=== PATIENT | male | born 1965 ===

== ENCOUNTER 2018-07-16 17:51 | Emergency (ER) | payer SELFPAY ==
--- NOTE | 2018-07-16 18:23 | EDM.PDOC ---
ED HPI GENERAL MEDICAL PROBLEM - General Chief Complaint: General Stated Complaint: NUMB ON LT SIDE Time Seen by Provider: 07/16/18 18:08 Source of Information: Reports: Patient History Limitations: Reports: No Limitations - History of Present Illness INITIAL COMMENTS - FREE TEXT/NARRATIVE: HISTORY AND PHYSICAL: History of present illness: Patient is a 52-year-old male presents to the ED today for concern of foot numbness/pain 3 weeks. Patient states he did not come in initially because he thought it would get better but it has not. Patient states the numbness is on the bottom of his toes and foot on the left. Patient states yesterday his whole foot has swelled up and he had noticed that this made his symptoms worse. Patient denies any injury to the foot. Patient states he does have diabetes and has not been getting this managed outpatient. Patient denies any other symptoms. Patient denies fever, chills, chest pain, shortness of breath, or cough. Denies headache, neck stiff ness, change in vision, syncope, or near syncope. Denies nausea, vomiting, abdominal pain, diarrhea, constipation, or dysuria. Has not noted any blood in urine or stool. Patient has been eating and drinking appropriately. Review of systems: As per history of present illness and below otherwise all systems reviewed and negative. Past medical history: As per history of present illness and as reviewed below otherwise noncontributory. Surgical history: As per history of present illness and as reviewed below otherwise noncontributory. Social history: See social history for further information Family history: As per history of present illness and as reviewed below otherwise noncontributory. Physical exam: General: Patient is alert, oriented, and in no acute distress. Patient sitting comfortably on exam table. HEENT: Atraumatic, normocephalic, pupils equal and reactive bilaterally, negative for conjunctival pallor or scleral icterus, mucous membranes moist, TMs normal bilaterally, throat clear, neck supple, nontender, trachea midline. No drooling or trismus noted. No meningeal signs. No hot potato voice noted. Lungs: Clear to auscultation, breath sounds equal bilaterally, chest nontender. Heart: S1S2, regular rate and rhythm without overt murmur Abdomen: Soft, nondistended, nontender. Negative for masses or hepatosplenomegaly. Negative for costovertebral tenderness. Pelvis: Stable nontender. Genitourinary: Deferred. Rectal: Deferred. Skin: Intact, warm, dry. No lesions or rashes noted. Extremities: Atraumatic, negative for cords or calf pain. Neurovascular unremarkable. Dorsalis pedis and posterior tibial pulses intact. Doppler. Patient has full range of motion of bilateral ankles and toes. Negative pain to palpation of the complete foot. No edema or erythema noted of the foot. Patient does express numbness with touch to the bottom toes and dorsum of the foot. Patient has full range of motion of knees and hip without difficulty. Capillary refill less than 2 seconds. Neuro: Awake, alert, oriented. Cranial nerves II through XII unremarkable. Cerebellum unremarkable. Motor and sensory unremarkable throughout. Exam nonfocal. Notes: Dr. Eastman verbally involved in patient care. On secondary review when discussing patient's glucose level, he states he does have metformin at home, just has not been taking it. I did discuss the option of admission for observation and management of his sugars, but patient declines stating "I have work to do" and declines admission. Discussed the risks of going home and patient is accepting of risk. Discussed the importance of follow-up with primary care provider. He is placed on the expedited appointment visit. Voices understanding and is agreeable to plan of care. Discussed taking his metformin he has at home. Denies any further questions or concerns at this time. Diagnostics: foot XR, doppler venous lower extremity, CBC, CMP, UA, bedside glucose Therapeutics: Insulin, saline Prescription: None Impression: Type 2 Diabetes, uncontrolled Foot paresthesia, left Plan: 1. You can alternate ibuprofen and Tylenol as directed for pain and discomfort. Take your Metformin as you have at home. 2. Follow-up with a primary care provider and get established for care of your diabetes as discussed. 3. Return to the ED as needed and as discussed. Definitive disposition and diagnosis as appropriate pending reevaluation and review of above. no pain Pain Score (Numeric/FACES): 0 - Related Data Allergies Allergy/AdvReac Type Severity Reaction Status Date / Time No Known Allergies Allergy Verified 07/16/18 18:04 Home Meds: Home Meds Lisinopril 0 mg PO DAILY 07/16/18 [History] metFORMIN [Glucophage] 100 mg PO BID 07/16/18 [History] Past Medical History HEENT History: Reports: None Cardiovascular History: Reports: Hypertension Respiratory History: Reports: None Gastrointestinal History: Reports: None Genitourinary History: Reports: None Neurological History: Reports: None Psychiatric History: Reports: None Endocrine/Metabolic History: Reports: Diabetes, Type II Hematologic History: Reports: None Dermatologic History: Reports: None - Infectious Disease History Infectious Disease History: Reports: Chicken Pox - Past Surgical History Male Surgical History: Reports: None Musculoskeletal Surgical History: Reports: None Social & Family History - Family History Family Medical History: Noncontributory - Tobacco Use Smoking Status *Q: Current Every Day Smoker Years of Tobacco use: 40 Packs/Tins Daily: 1 - Recreational Drug Use Recreational Drug Use: No ED ROS GENERAL - Review of Systems Review Of Systems: ROS reveals no pertinent complaints other than HPI. ED EXAM, GENERAL - Physical Exam Exam: See Below (see dictation) Course - Vital Signs Last Recorded V/S: Last Vital Signs Temp 36.4 C 07/16/18 18:06 Pulse 97 07/16/18 18:06 Resp 18 07/16/18 18:06 BP 117/87 07/16/18 18:06 Pulse Ox 95 07/16/18 18:06 - Orders/Labs/Meds Orders: Active Orders 24 hr Category Date Time Status Communication Order [RC] STAT Care 07/16/18 20:18 Active Glucose [Blood Glucose Check, Bedside] [RC] ONETIME Care 07/16/18 18:16 Active Glucose [Blood Glucose Check, Bedside] [RC] ONETIME Care 07/16/18 19:26 Active Sodium Chloride 0.9% [Normal Saline] 1,000 ml Med 07/16/18 20:17 Active IV STAT Medication Orders Sodium Chloride (Normal Saline) 1,000 mls @ 999 mls/hr IV STAT ONE Stop: 07/16/18 21:17 Last Admin: 07/16/18 20:40 Dose: 999 mls/hr Labs: Laboratory Tests 07/16/18 07/16/18 07/16/18 Range/Units 18:22 18:26 18:26 WBC 5.34 (4.0-11.0) K/uL RBC 4.78 (4.50-5.90) M/uL Hgb 14.6 (13.0-17.0) g/dL Hct 41.1 (38.0-50.0) % MCV 86.0 (80.0-98.0) fL MCH 30.5 (27.0-32.0) pg MCHC 35.5 (31.0-37.0) g/dL RDW Std Deviation 41.0 (28.0-62.0) fl RDW Coeff of Kosta 13 (11.0-15.0) % Plt Count 248 (150-400) K/uL MPV 10.20 (7.40-12.00) fL Neut % (Auto) 47.4 L (48.0-80.0) % Lymph % (Auto) 43.8 H (16.0-40.0) % [place] % (Auto) 6.0 (0.0-15.0) % Eos % (Auto) 1.5 (0.0-7.0) % Baso % (Auto) 1.3 (0.0-1.5) % Neut # (Auto) 2.5 (1.4-5.7) K/uL Lymph # (Auto) 2.3 (0.6-2.4) K/uL Gaston # (Auto) 0.3 (0.0-0.8) K/uL Eos # (Auto) 0.1 (0.0-0.7) K/uL Baso # (Auto) 0.1 (0.0-0.1) K/uL Nucleated RBC % 0.0 /100WBC Nucleated RBCs # 0 K/uL Sodium 131 L (136-148) mmol/L Potassium 4.3 (3.5-5.1) mmol/L Chloride 96 L (98-107) mmol/L Carbon Dioxide 19.2 L (21.0-32.0) mmol/L BUN 13 (7.0-18.0) mg/dL Creatinine 1.0 (0.8-1.3) mg/dL Est Cr Clr Drug Dosing 83.60 mL/min Estimated GFR (MDRD) > 60.0 ml/min Glucose 577 H* (74-106) mg/dL POC Glucose 452 H (60-110) mg/dL Hemoglobin A1c (4.5-6.2) % Calcium 8.9 (8.5-10.1) mg/dL Total Bilirubin 0.2 (0.2-1.0) mg/dL AST 12 L (15-37) IU/L ALT 20 (14-63) IU/L Alkaline Phosphatase 74 (46-116) U/L Total Protein 7.4 (6.4-8.2) g/dL Albumin 3.6 (3.4-5.0) g/dL Globulin 3.8 (2.6-4.0) g/dL Albumin/Globulin Ratio 0.9 (0.9-1.6) Urine Color Urine Appearance Urine pH (5.0-8.0) Ur Specific [place] (1.001-1.035) Urine Protein (NEGATIVE) mg/dL Urine Glucose (UA) (NEGATIVE) mg/dL Urine Ketones (NEGATIVE) mg/dL Urine Occult Blood (NEGATIVE) Urine Nitrite (NEGATIVE) Urine Bilirubin (NEGATIVE) Urine Urobilinogen (<2.0) EU/dL Ur Leukocyte Esterase (NEGATIVE) 07/16/18 07/16/18 07/16/18 Range/Units 18:26 19:00 19:52 WBC (4.0-11.0) K/uL RBC (4.50-5.90) M/uL Hgb (13.0-17.0) g/dL Hct (38.0-50.0) % MCV (80.0-98.0) fL MCH (27.0-32.0) pg MCHC (31.0-37.0) g/dL RDW Std Deviation (28.0-62.0) fl RDW Coeff of Kosta (11.0-15.0) % Plt Count (150-400) K/uL MPV (7.40-12.00) fL Neut % (Auto) (48.0-80.0) % Lymph % (Auto) (16.0-40.0) % [place] % (Auto) (0.0-15.0) % Eos % (Auto) (0.0-7.0) % Baso % (Auto) (0.0-1.5) % Neut # (Auto) (1.4-5.7) K/uL Lymph # (Auto) (0.6-2.4) K/uL Gaston # (Auto) (0.0-0.8) K/uL Eos # (Auto) (0.0-0.7) K/uL Baso # (Auto) (0.0-0.1) K/uL Nucleated RBC % /100WBC Nucleated RBCs # K/uL Sodium (136-148) mmol/L Potassium (3.5-5.1) mmol/L Chloride (98-107) mmol/L Carbon Dioxide (21.0-32.0) mmol/L BUN (7.0-18.0) mg/dL Creatinine (0.8-1.3) mg/dL Est Cr Clr Drug Dosing mL/min Estimated GFR (MDRD) ml/min Glucose (74-106) mg/dL POC Glucose 348 H (60-110) mg/dL Hemoglobin A1c 11.9 H (4.5-6.2) % Calcium (8.5-10.1) mg/dL Total Bilirubin (0.2-1.0) mg/dL AST (15-37) IU/L ALT (14-63) IU/L Alkaline Phosphatase (46-116) U/L Total Protein (6.4-8.2) g/dL Albumin (3.4-5.0) g/dL Globulin (2.6-4.0) g/dL Albumin/Globulin Ratio (0.9-1.6) Urine Color YELLOW Urine Appearance CLEAR Urine pH 5.5 (5.0-8.0) Ur Specific [place] <= 1.005 (1.001-1.035) Urine Protein NEGATIVE (NEGATIVE) mg/dL Urine Glucose (UA) >=1000 (NEGATIVE) mg/dL Urine Ketones TRACE H (NEGATIVE) mg/dL Urine Occult Blood NEGATIVE (NEGATIVE) Urine Nitrite NEGATIVE (NEGATIVE) Urine Bilirubin NEGATIVE (NEGATIVE) Urine Urobilinogen 0.2 (<2.0) EU/dL Ur Leukocyte Esterase NEGATIVE (NEGATIVE) Meds: Medications Generic Name Dose Route Start Last Admin Trade Name Freq PRN Reason Stop Dose Admin Sodium Chloride 1,000 mls @ 999 mls/hr 07/16/18 20:17 07/16/18 20:40 Normal Saline IV 07/16/18 21:17 999 mls/hr STAT ONE Administration Discontinued Medications Generic Name Dose Route Start Last Admin Trade Name Freq PRN Reason Stop Dose Admin Insulin Human Regular 10 unit 07/16/18 18:58 07/16/18 19:13 Novolin R SUBCUT 05/13/19 18:59 10 units ONETIME ONE Administration Protocol Departure - Departure Time of Disposition: 21:06 Disposition: Home, Self-Care 01 Clinical Impression: Diabetes type 2, uncontrolled Qualifiers: Glycemic state: with hyperglycemia Qualified Code(s): E11.65 - Type 2 diabetes mellitus with hyperglycemia Paresthesia of foot Qualifiers: Laterality: left Qualified Code(s): R20.2 - Paresthesia of skin - Discharge Information Instructions: Type 2 Diabetes Mellitus, Self Care, Adult Referrals: PCP,None [Primary Care Provider] - Forms: ED Department Discharge Additional Instructions: The following information is given to patients seen in the emergency department who are being discharged to home. This information is to outline your options for follow-up care. We provide all patients seen in our emergency department with a follow-up referral. The need for follow-up, as well as the timing and circumstances, are variable depending upon the specifics of your emergency department visit. If you don't have a primary care physician on staff, we will provide you with a referral. We always advise you to contact your personal physician following an emergency department visit to inform them of the circumstance of the visit and for follow-up with them and/or the need for any referrals to a consulting specialist. The emergency department will also refer you to a specialist when appropriate. This referral assures that you have the opportunity for follow-up care with a specialist. All of these measure are taken in an effort to provide you with optimal care, which includes your follow-up. Under all circumstances we always encourage you to contact your private physician who remains a resource for coordinating your care. When calling for follow-up care, please make the office aware that this follow-up is from your recent emergency room visit. If for any reason you are refused follow-up, please contact the [facility] Emergency Department at and asked to speak to the emergency department charge nurse. [facility] [address] [place] [id number] [facility] [address] [place] [id number] 1. You can alternate ibuprofen and Tylenol as directed for pain and discomfort. Take your Metformin as you have at home. 2. Follow-up with a primary care provider and get established for care of your diabetes as discussed. 3. Return to the ED as needed and as discussed. - My Orders Last 24 Hours: My Active Orders 07/16/18 18:16 Glucose [Blood Glucose Check, Bedside] [RC] ONETIME 07/16/18 19:26 Glucose [Blood Glucose Check, Bedside] [RC] ONETIME 07/16/18 20:17 Sodium Chloride 0.9% [Normal Saline] 1,000 ml IV STAT 07/16/18 20:18 Communication Order [RC] STAT - Assessment/Plan Last 24 Hours: My Active Orders 07/16/18 18:16 Glucose [Blood Glucose Check, Bedside] [RC] ONETIME 07/16/18 19:26 Glucose [Blood Glucose Check, Bedside] [RC] ONETIME 07/16/18 20:17 Sodium Chloride 0.9% [Normal Saline] 1,000 ml IV STAT 07/16/18 20:18 Communication Order [RC] STAT
[2018-07-16 18:57] LABS: CHLORIDE,CL 96 mmol/L (98-107); SODIUM,NA 131 mmol/L (136-148)
[2018-07-16] MEDS ORDERED: Insulin Regular, Human 100 Units/ML 10 ML Vial SUBCUT ONE (18:58)
--- NOTE | 2018-07-16 19:08 | CR ---
Indication: Foot numbness overlying the metatarsals Technique: Two views left foot Comparison: None Findings: Bones: Alignment is normal. No fractures or bone lesions. Joint spaces: Unremarkable. Soft tissues: Unremarkable. Impression: Negative. Dictated by Shadia Landrum MD @ Jul 16 2018 7:07PM Signed by Dr. Shadia Landrum @ Jul 16 2018 7:07PM
--- NOTE | 2018-07-16 20:10 | US ---
INDICATION: Pain TECHNIQUE: Ultrasound venous duplex lower left extremity. Compression venous exam was performed using newman-scale, color Doppler, and spectral Doppler analysis. COMPARISON: None FINDINGS: Sonographic imaging demonstrates the left common femoral, deep femoral, superficial femoral, popliteal, posterior tibial and greater saphenous veins to be fully compressible with normal color Doppler blood flow. IMPRESSION: Normal left lower extremity venous ultrasound, no sign of deep venous thrombosis. Dictated by Lewis Hamilton MD @ 07/16/2018 8:09:21 PM Dictated by: Lewis Hamilton MD @ 07/16/2018 20:09:24 (Electronically Signed)
[2018-07-16] MEDS ORDERED: Sodium Chloride 0.9% 1,000 ML IV ONE (20:17)
[2018-07-16 20:41] LABS: HEMOGLOBIN A1C 11.9 % (4.5-6.2)
== END 2018-07-16 21:29 | disposition home or self-care (01) ==
LOC: MW.ED 17:51
DX: E11.65 Type 2 diabetes mellitus with hyperglycemia (principal); R20.2 Paresthesia of skin; I10 Essential (primary) hypertension; F17.210 Nicotine dependence, cigarettes, uncomplicated; Z79.84 Long term (current) use of oral hypoglycemic drugs; Z79.899 Other long term (current) drug therapy
CPT/HCPCS: 36415; 73620; 80053; 81003; 82962; 83036; 85025; 93971; 96360; 99285; J7040; J1815-GY

== ENCOUNTER 2018-07-29 14:43 | Observation (INO) | payer SELFPAY ==
--- NOTE | 2018-07-29 14:56 | EDM.PDOC ---
ED HPI GENERAL MEDICAL PROBLEM - General Chief Complaint: General Stated Complaint: HIGH BLOOD SUGAR, VOMITING BLOOD, WEAK Time Seen by Provider: 07/29/18 14:56 Source of Information: Reports: Patient History Limitations: Reports: No Limitations - History of Present Illness INITIAL COMMENTS - FREE TEXT/NARRATIVE: HISTORY AND PHYSICAL: History of present illness: Patient is a 52-year-old male who presents to the emergency room with complaints of nausea and generalized upper abdominal pain. Patient reports that he took his insulin this morning and had felt nauseated. He went into the bathroom and stuck his finger down his throat to help facilitate vomiting. He states when he pulled his finger out of his mouth he had noted blood on his finger. He was concerned that he was vomiting up blood. He states he continues to have some generalized upper abdominal pain and weakness. He states he did have normal bowel movement today, but was concerned it was dark in color. He cannot describe if there was bright blood, maroon in color or dark tarry stool. Patient denies any fever, chills, headache, change in vision, syncope or near syncope. Denies any chest pain, back pain, shortness of breath or cough. Denies any vomiting, diarrhea, constipation or dysuria. Has not noted any blood in urine or stool. Patient has been eating and drinking appropriately. Review of systems: As per history of present illness and below otherwise all systems reviewed and negative. Past medical history: As per history of present illness and as reviewed below otherwise noncontributory. Surgical history: As per history of present illness and as reviewed below otherwise noncontributory. Social history: See social history for further information Family history: As per history of present illness and as reviewed below otherwise noncontributory. Physical exam: General: Well-developed and well nourished 52-year-old male. Alert and oriented. Nontoxic appearing and in no acute distress. HEENT: Atraumatic, normocephalic, pupils equal and reactive bilaterally, negative for conjunctival pallor or scleral icterus, mucous membranes moist, TMs normal bilaterally, throat clear, neck supple, nontender, trachea midline. No drooling or trismus noted. No meningeal signs. No hot potato voice noted. Lungs: Clear to auscultation, breath sounds equal bilaterally, chest nontender. Heart: S1S2, regular rate and rhythm without overt murmur Abdomen: Soft, nondistended, epigastric tenderness with palpation. Negative for masses or hepatosplenomegaly. Negative for costovertebral tenderness. Pelvis: Stable nontender. Genitourinary: Deferred. Rectal: This was done with consent and a operator cavity pump at the bedside. No external hemorrhoids noted. Good rectal tone. Hemoccult negative. Skin: Intact, warm, dry. No lesions or rashes noted. Extremities: Atraumatic, moves all extremities per self without difficulty or deficits, negative for cords or calf pain. Neurovascular unremarkable. Neuro: Awake, alert, oriented. Cranial nerves II through XII unremarkable. Cerebellum unremarkable. Motor and sensory unremarkable throughout. Exam nonfocal. Notes: Bedside glucose is 241. Will give insulin subcutaneous. Patient is agreeable to labs and imaging at this time. Lab work is unremarkable, with the exception of elevated lipase. Vital signs remain stable. Repeat blood glucose is 202. Patient continues to complain of epigastric pain. He is requesting to be admitted as he does not feel comfortable going home. Dr. Le was consulted on this case is agreeable to keeping him for observation. Patient is aware and agreeable. Diagnostics: CBC, CMP, UA, Fecal Occult, CT abdomen and pelvis Therapeutics: IV fluid, Zofran, 5 units insulin Impression: Pancreatitis Unmanaged DM 2 Plan: Observation admission to Med/Surg Definitive disposition and diagnosis as appropriate pending reevaluation and review of above. Middle Abdomen Pain Score (Numeric/FACES): 5 - Related Data Allergies Allergy/AdvReac Type Severity Reaction Status Date / Time No Known Allergies Allergy Verified 07/29/18 14:53 Home Meds: Home Meds Aspirin [Ecotrin] 1 tab PO DAILY 07/29/18 [History] Insulin Degludec [Tresiba] 1 dose SQ WEEKLY 07/29/18 [History] Insulin Glarg,Human.Rec.Analog [Lantus] 20 units SQ DAILY 07/29/18 [History] Lisinopril 10 mg PO DAILY 07/29/18 [History] Past Medical History HEENT History: Reports: None Cardiovascular History: Reports: Hypertension Respiratory History: Reports: None Gastrointestinal History: Reports: None Genitourinary History: Reports: None Neurological History: Reports: None Psychiatric History: Reports: None Endocrine/Metabolic History: Reports: Diabetes, Type II Hematologic History: Reports: None Dermatologic History: Reports: None - Infectious Disease History Infectious Disease History: Reports: Chicken Pox - Past Surgical History Male Surgical History: Reports: None Musculoskeletal Surgical History: Reports: None Social & Family History - Family History Family Medical History: Noncontributory ED ROS GENERAL - Review of Systems Review Of Systems: ROS reveals no pertinent complaints other than HPI. ED EXAM, GENERAL - Physical Exam Exam: See Below (See dictation) Course - Vital Signs Last Recorded V/S: Last Vital Signs Temp 97.3 F 07/29/18 14:49 Pulse 98 07/29/18 14:49 Resp 16 07/29/18 14:49 BP 143/83 H 07/29/18 14:49 Pulse Ox 98 07/29/18 14:49 - Orders/Labs/Meds Orders: Active Orders 24 hr Category Date Time Status Patient Status [ADT] Stat ADT 07/29/18 17:29 Ordered Blood Glucose Check, Bedside [RC] ONETIME Care 07/29/18 14:57 Active Fecal Occult Blood Collection [RC] ASDIRECTED Care 07/29/18 14:58 Active Glucose [Blood Glucose Check, Bedside] [RC] ONETIME Care 07/29/18 16:10 Active Sodium Chloride 0.9% [Normal Saline] 1,000 ml Med 07/29/18 17:29 Ordered IV STAT Labs: Laboratory Tests 07/29/18 07/29/18 07/29/18 Range/Units 15:00 15:14 15:16 WBC 4.51 (4.0-11.0) K/uL RBC 5.01 (4.50-5.90) M/uL Hgb 15.0 (13.0-17.0) g/dL Hct 44.4 (38.0-50.0) % MCV 88.6 (80.0-98.0) fL MCH 29.9 (27.0-32.0) pg MCHC 33.8 (31.0-37.0) g/dL RDW Std Deviation 40.8 (28.0-62.0) fl RDW Coeff of K[place] 13 (11.0-15.0) % Plt Count 207 (150-400) K/uL MPV 9.70 (7.40-12.00) fL Neut % (Auto) 38.8 L (48.0-80.0) % Lymph % (Auto) 51.2 H (16.0-40.0) % [place] % (Auto) 7.5 (0.0-15.0) % Eos % (Auto) 1.6 (0.0-7.0) % Baso % (Auto) 0.9 (0.0-1.5) % Neut # (Auto) 1.8 (1.4-5.7) K/uL Lymph # (Auto) 2.3 (0.6-2.4) K/uL [place] # (Auto) 0.3 (0.0-0.8) K/uL Eos # (Auto) 0.1 (0.0-0.7) K/uL Baso # (Auto) 0.0 (0.0-0.1) K/uL Nucleated RBC % 0.0 /100WBC Nucleated RBCs # 0 K/uL ABG pH (7.35-7.45) ABG pCO2 (35-45) mmHG ABG pO2 (75-100) mmHG ABG HCO3 (22-26) mEq/L ABG Total CO2 ABG Base Excess (-2.0-2.0) Sodium (136-148) mmol/L Potassium (3.5-5.1) mmol/L Chloride (98-107) mmol/L Carbon Dioxide (21.0-32.0) mmol/L BUN (7.0-18.0) mg/dL Creatinine (0.8-1.3) mg/dL Est Cr Clr Drug Dosing mL/min Estimated GFR (MDRD) ml/min Glucose (74-106) mg/dL POC Glucose 241 H (60-110) mg/dL Calcium (8.5-10.1) mg/dL Total Bilirubin (0.2-1.0) mg/dL AST (15-37) IU/L ALT (14-63) IU/L Alkaline Phosphatase (46-116) U/L Total Protein (6.4-8.2) g/dL Albumin (3.4-5.0) g/dL Globulin (2.6-4.0) g/dL Albumin/Globulin Ratio (0.9-1.6) Lipase (73-393) U/L Urine Color YELLOW Urine Appearance CLEAR Urine pH 5.5 (5.0-8.0) Ur Specific [place] <= 1.005 (1.001-1.035) Urine Protein NEGATIVE (NEGATIVE) mg/dL Urine Glucose (UA) >=1000 (NEGATIVE) mg/dL Urine Ketones NEGATIVE (NEGATIVE) mg/dL Urine Occult Blood NEGATIVE (NEGATIVE) Urine Nitrite NEGATIVE (NEGATIVE) Urine Bilirubin NEGATIVE (NEGATIVE) Urine Urobilinogen 0.2 (<2.0) EU/dL Ur Leukocyte Esterase NEGATIVE (NEGATIVE) 07/29/18 07/29/18 07/29/18 Range/Units 15:16 15:16 15:20 WBC (4.0-11.0) K/uL RBC (4.50-5.90) M/uL Hgb (13.0-17.0) g/dL Hct (38.0-50.0) % MCV (80.0-98.0) fL MCH (27.0-32.0) pg MCHC (31.0-37.0) g/dL RDW Std Deviation (28.0-62.0) fl RDW Coeff of Kosta (11.0-15.0) % Plt Count (150-400) K/uL MPV (7.40-12.00) fL Neut % (Auto) (48.0-80.0) % Lymph % (Auto) (16.0-40.0) % [place] % (Auto) (0.0-15.0) % Eos % (Auto) (0.0-7.0) % Baso % (Auto) (0.0-1.5) % Neut # (Auto) (1.4-5.7) K/uL Lymph # (Auto) (0.6-2.4) K/uL [place] # (Auto) (0.0-0.8) K/uL Eos # (Auto) (0.0-0.7) K/uL Baso # (Auto) (0.0-0.1) K/uL Nucleated RBC % /100WBC Nucleated RBCs # K/uL ABG pH 7.402 (7.35-7.45) ABG pCO2 38 (35-45) mmHG ABG pO2 87 (75-100) mmHG ABG HCO3 24 (22-26) mEq/L ABG Total CO2 20.6 ABG Base Excess -0.9 (-2.0-2.0) Sodium 143 (136-148) mmol/L Potassium 3.8 (3.5-5.1) mmol/L Chloride 105 (98-107) mmol/L Carbon Dioxide 28.3 (21.0-32.0) mmol/L BUN 8 (7.0-18.0) mg/dL Creatinine 0.9 (0.8-1.3) mg/dL Est Cr Clr Drug Dosing 92.89 mL/min Estimated GFR (MDRD) > 60.0 ml/min Glucose 244 H (74-106) mg/dL POC Glucose (60-110) mg/dL Calcium 8.6 (8.5-10.1) mg/dL Total Bilirubin 0.4 (0.2-1.0) mg/dL AST 18 (15-37) IU/L ALT 22 (14-63) IU/L Alkaline Phosphatase 54 (46-116) U/L Total Protein 7.5 (6.4-8.2) g/dL Albumin 3.8 (3.4-5.0) g/dL Globulin 3.7 (2.6-4.0) g/dL Albumin/Globulin Ratio 1.0 (0.9-1.6) Lipase 630 H (73-393) U/L Urine Color Urine Appearance Urine pH (5.0-8.0) Ur Specific [place] (1.001-1.035) Urine Protein (NEGATIVE) mg/dL Urine Glucose (UA) (NEGATIVE) mg/dL Urine Ketones (NEGATIVE) mg/dL Urine Occult Blood (NEGATIVE) Urine Nitrite (NEGATIVE) Urine Bilirubin (NEGATIVE) Urine Urobilinogen (<2.0) EU/dL Ur Leukocyte Esterase (NEGATIVE) 07/29/18 Range/Units 16:53 WBC (4.0-11.0) K/uL RBC (4.50-5.90) M/uL Hgb (13.0-17.0) g/dL Hct (38.0-50.0) % MCV (80.0-98.0) fL MCH (27.0-32.0) pg MCHC (31.0-37.0) g/dL RDW Std Deviation (28.0-62.0) fl RDW Coeff of K[place] (11.0-15.0) % Plt Count (150-400) K/uL MPV (7.40-12.00) fL Neut % (Auto) (48.0-80.0) % Lymph % (Auto) (16.0-40.0) % [place] % (Auto) (0.0-15.0) % Eos % (Auto) (0.0-7.0) % Baso % (Auto) (0.0-1.5) % Neut # (Auto) (1.4-5.7) K/uL Lymph # (Auto) (0.6-2.4) K/uL [place] # (Auto) (0.0-0.8) K/uL Eos # (Auto) (0.0-0.7) K/uL Baso # (Auto) (0.0-0.1) K/uL Nucleated RBC % /100WBC Nucleated RBCs # K/uL ABG pH (7.35-7.45) ABG pCO2 (35-45) mmHG ABG pO2 (75-100) mmHG ABG HCO3 (22-26) mEq/L ABG Total CO2 ABG Base Excess (-2.0-2.0) Sodium (136-148) mmol/L Potassium (3.5-5.1) mmol/L Chloride (98-107) mmol/L Carbon Dioxide (21.0-32.0) mmol/L BUN (7.0-18.0) mg/dL Creatinine (0.8-1.3) mg/dL Est Cr Clr Drug Dosing mL/min Estimated GFR (MDRD) ml/min Glucose (74-106) mg/dL POC Glucose 202 H (60-110) mg/dL Calcium (8.5-10.1) mg/dL Total Bilirubin (0.2-1.0) mg/dL AST (15-37) IU/L ALT (14-63) IU/L Alkaline Phosphatase (46-116) U/L Total Protein (6.4-8.2) g/dL Albumin (3.4-5.0) g/dL Globulin (2.6-4.0) g/dL Albumin/Globulin Ratio (0.9-1.6) Lipase (73-393) U/L Urine Color Urine Appearance Urine pH (5.0-8.0) Ur Specific [place] (1.001-1.035) Urine Protein (NEGATIVE) mg/dL Urine Glucose (UA) (NEGATIVE) mg/dL Urine Ketones (NEGATIVE) mg/dL Urine Occult Blood (NEGATIVE) Urine Nitrite (NEGATIVE) Urine Bilirubin (NEGATIVE) Urine Urobilinogen (<2.0) EU/dL Ur Leukocyte Esterase (NEGATIVE) Meds: Medications Discontinued Medications Generic Name Dose Route Start Last Admin Trade Name Freq PRN Reason Stop Dose Admin Sodium Chloride 1,000 mls @ 999 mls/hr 07/29/18 14:57 07/29/18 15:20 Normal Saline IV 07/29/18 15:57 999 mls/hr STAT ONE Administration Insulin Human Regular 5 unit 07/29/18 15:25 07/29/18 15:31 Novolin R SUBCUT 07/29/18 15:26 5 unit ONETIME ONE Administration Protocol Iopamidol 100 ml 07/29/18 16:54 07/29/18 16:54 Isovue Multipack-370 (76%) IVPUSH 07/29/18 16:55 100 ml ONETIME ONE Administration Ondansetron HCl 4 mg 07/29/18 14:57 07/29/18 15:22 Zofran IVPUSH 07/29/18 14:58 4 mg ONETIME ONE Administration Departure - Departure Time of Disposition: 17:30 Disposition: Refer to Observation Clinical Impression: Pancreatitis Qualifiers: Chronicity: acute Pancreatitis type: unspecified pancreatitis type Acute pancreatitis complication: no infection or necrosis Qualified Code(s): K85.90 - Acute pancreatitis without necrosis or infection, unspecified Diabetes type 2, uncontrolled Qualifiers: Glycemic state: with hyperglycemia Qualified Code(s): E11.65 - Type 2 diabetes mellitus with hyperglycemia - Discharge Information Referrals: PCP,None [Primary Care Provider] - Forms: ED Department Discharge - My Orders Last 24 Hours: My Active Orders 07/29/18 14:57 Blood Glucose Check, Bedside [RC] ONETIME 07/29/18 14:58 Fecal Occult Blood Collection [RC] ASDIRECTED 07/29/18 16:10 Glucose [Blood Glucose Check, Bedside] [RC] ONETIME 07/29/18 17:29 Patient Status [ADT] Stat Sodium Chloride 0.9% [Normal Saline] 1,000 ml IV STAT - Assessment/Plan Last 24 Hours: My Active Orders 07/29/18 14:57 Blood Glucose Check, Bedside [RC] ONETIME 07/29/18 14:58 Fecal Occult Blood Collection [RC] ASDIRECTED 07/29/18 16:10 Glucose [Blood Glucose Check, Bedside] [RC] ONETIME 07/29/18 17:29 Patient Status [ADT] Stat Sodium Chloride 0.9% [Normal Saline] 1,000 ml IV STAT
[2018-07-29] MEDS ORDERED: Ondansetron 4 MG/2 ML SDV IVPUSH ONE (14:57)
[2018-07-29] MEDS ORDERED: Sodium Chloride 0.9% 1,000 ML IV ONE ×2 (14:57→17:29)
[2018-07-29] MEDS ORDERED: Insulin Regular, Human 100 Units/ML 10 ML Vial SUBCUT ONE (15:25)
[2018-07-29 15:43] LABS: CHLORIDE,CL 105 mmol/L (98-107); SODIUM,NA 143 mmol/L (136-148)
[2018-07-29] MEDS ORDERED: Iopamidol 755 MG/ML 500 ML Multipack Bottle IVPUSH ONE (16:54)
--- NOTE | 2018-07-29 17:25 | CT ---
INDICATION: Abdominal pain, bloody stools, vomiting blood since this morning. TECHNIQUE: CT of the abdomen and pelvis performed after IV injection of 100 mL of Omnipaque V 370. FINDINGS: Small tubular shaped and nodular density in the left lower lobe medially likely benign. Minimal fibrosis and atelectasis in the lung bases. Trace amount of pericardial fluid and/or pericardial thickening. Mild diffuse fatty infiltration of the liver. Increased number of small to mildly prominent abdominal mesenteric lymph nodes diffusely likely inflammatory or reactive in nature. Left-sided abdominal inferior vena cava a normal variant venous finding. Mild prostatic enlargement. Appendix is normal. No CT evidence of colitis. Remainder negative. IMPRESSION: 1. No acute disease and abdomen or pelvis. No CT abnormality to account for a bloody stools, abdominal pain, or hematemesis. 2. Mild increased number of small to mildly prominent lymph nodes diffusely in the abdominal mesentery likely inflammatory. 3. Mild prostatic enlargement. Other findings as above. Please note that all CT scans at this facility use dose modulation, iterative reconstruction, and/or weight-based dosing when appropriate to reduce radiation dose to as low as reasonably achievable. Dictated by Daniel Dugan MD @ Jul 29 2018 5:24PM Signed by Dr. Daniel Dugan @ Jul 29 2018 5:24PM
[2018-07-29] MEDS ORDERED: Ondansetron 4 MG/2 ML SDV IVPUSH PRN (18:49)
[2018-07-29] MEDS ORDERED: Pantoprazole 40 MG in Sodium Chloride 0.9% 100 ML IVPUSH SCH (19:00)
[2018-07-29] MEDS ORDERED: Pantoprazole 40 MG Vial IVPUSH SCH (19:00)
[2018-07-29] MEDS: Insulin Aspart 100 Units/ML 3 ML Pen SUBCUT SCH (19:09)
[2018-07-29] MEDS: Sodium Chloride 0.9% 1,000 ML IV SCH (19:26)
--- NOTE | 2018-07-29 23:23 | PCM.HP ---
H&P History of Present Illness - General Date of Service: 07/29/18 Admit Problem/Dx: Admission Diagnosis/Problem Admission Diagnosis/Problem Pancreatitis - History of Present Illness Initial Comments - Free Text/Narative: 52 yo male who presents with nausea and abdominal pain. Patient reports he was nauseated at work. He checked his blood glucose and it was 240-270. He stuck his finger in his mouth to induce vomiting. He noticed some blood on his fingers after words. He reports abdominal pain that lasted about 30 minutes. Earlier this morning he reported a loose stool. CT scan in the ED reported no acute disease. there was some mildly prominent lymph nodes in the mesentery. Middle Abdomen Pain Score (Numeric/FACES): 5 - Related Data Allergies/Adverse Reactions: Allergies Allergy/AdvReac Type Severity Reaction Status Date / Time No Known Allergies Allergy Verified 07/29/18 14:53 Home Medications: Home Meds Aspirin [Ecotrin] 1 tab PO DAILY 07/29/18 [History] Insulin Degludec [Tresiba] 1 dose SQ WEEKLY 07/29/18 [History] Insulin Glarg,Human.Rec.Analog [Lantus] 20 units SQ DAILY 07/29/18 [History] Lisinopril 10 mg PO DAILY 07/29/18 [History] Past Medical History HEENT History: Reports: None Cardiovascular History: Reports: Hypertension, Other (See Below) Other Cardiovascular History: heart disease per patient Respiratory History: Reports: None Gastrointestinal History: Reports: None Genitourinary History: Reports: None Neurological History: Reports: None Psychiatric History: Reports: None Endocrine/Metabolic History: Reports: Diabetes, Type II Hematologic History: Reports: None Dermatologic History: Reports: None - Infectious Disease History Infectious Disease History: Reports: Chicken Pox - Past Surgical History Male Surgical History: Reports: None Musculoskeletal Surgical History: Reports: None Social & Family History - Family History Family Medical History: Noncontributory - Tobacco Use Smoking Status *Q: Current Every Day Smoker Years of Tobacco use: 42 Packs/Tins Daily: 1 - Caffeine Use Caffeine Use: Reports: Coffee - Recreational Drug Use Recreational Drug Use: No H&P Review of Systems - Review of Systems: Review Of Systems: ROS reveals no pertinent complaints other than HPI. Exam - Vital Signs Vital Signs: Last Vital Signs Temp 36.8 C 05/26/19 19:27 Pulse 82 07/29/18 19:27 Resp 16 07/29/18 19:27 BP 134/82 07/29/18 19:27 Pulse Ox 96 07/29/18 19:27 Weight: 74.559 kg - Exam General: Alert, Oriented HEENT: Mucosa Moist & [place] Lungs: Clear to Auscultation, Normal Respiratory Effort Cardiovascular: Regular Rate, Regular Rhythm GI/Abdominal Exam: Normal Bowel Sounds, Soft, Non-Tender Extremities: Normal Inspection, Non-Tender, No Pedal Edema Skin: Warm, Dry, Intact - Patient Data Lab Results Last 24 hrs: Laboratory Results - last 24 hr 07/29/18 07/29/18 07/29/18 Range/Units 15:00 15:14 15:16 WBC 4.51 (4.0-11.0) K/uL RBC 5.01 (4.50-5.90) M/uL Hgb 15.0 (13.0-17.0) g/dL Hct 44.4 (38.0-50.0) % MCV 88.6 (80.0-98.0) fL MCH 29.9 (27.0-32.0) pg MCHC 33.8 (31.0-37.0) g/dL RDW Std Deviation 40.8 (28.0-62.0) fl RDW Coeff of [place] 13 (11.0-15.0) % Plt Count 207 (150-400) K/uL MPV 9.70 (7.40-12.00) fL Neut % (Auto) 38.8 L (48.0-80.0) % Lymph % (Auto) 51.2 H (16.0-40.0) % [place] % (Auto) 7.5 (0.0-15.0) % Eos % (Auto) 1.6 (0.0-7.0) % Baso % (Auto) 0.9 (0.0-1.5) % Neut # (Auto) 1.8 (1.4-5.7) K/uL Lymph # (Auto) 2.3 (0.6-2.4) K/uL [place] # (Auto) 0.3 (0.0-0.8) K/uL Eos # (Auto) 0.1 (0.0-0.7) K/uL Baso # (Auto) 0.0 (0.0-0.1) K/uL Nucleated RBC % 0.0 /100WBC Nucleated RBCs # 0 K/uL ABG pH (7.35-7.45) ABG pCO2 (35-45) mmHG ABG pO2 (75-100) mmHG ABG HCO3 (22-26) mEq/L ABG Total CO2 ABG Base Excess (-2.0-2.0) Sodium (136-148) mmol/L Potassium (3.5-5.1) mmol/L Chloride (98-107) mmol/L Carbon Dioxide (21.0-32.0) mmol/L BUN (7.0-18.0) mg/dL Creatinine (0.8-1.3) mg/dL Est Cr Clr Drug Dosing mL/min Estimated GFR (MDRD) ml/min Glucose (74-106) mg/dL POC Glucose 241 H (60-110) mg/dL Calcium (8.5-10.1) mg/dL Total Bilirubin (0.2-1.0) mg/dL AST (15-37) IU/L ALT (14-63) IU/L Alkaline Phosphatase (46-116) U/L Total Protein (6.4-8.2) g/dL Albumin (3.4-5.0) g/dL Globulin (2.6-4.0) g/dL Albumin/Globulin Ratio (0.9-1.6) Lipase (73-393) U/L Urine Color YELLOW Urine Appearance CLEAR Urine pH 5.5 (5.0-8.0) Ur Specific [place] <= 1.005 (1.001-1.035) Urine Protein NEGATIVE (NEGATIVE) mg/dL Urine Glucose (UA) >=1000 (NEGATIVE) mg/dL Urine Ketones NEGATIVE (NEGATIVE) mg/dL Urine Occult Blood NEGATIVE (NEGATIVE) Urine Nitrite NEGATIVE (NEGATIVE) Urine Bilirubin NEGATIVE (NEGATIVE) Urine Urobilinogen 0.2 (<2.0) EU/dL Ur Leukocyte Esterase NEGATIVE (NEGATIVE) 07/29/18 07/29/18 07/29/18 Range/Units 15:16 15:16 15:20 WBC (4.0-11.0) K/uL RBC (4.50-5.90) M/uL Hgb (13.0-17.0) g/dL Hct (38.0-50.0) % MCV (80.0-98.0) fL MCH (27.0-32.0) pg MCHC (31.0-37.0) g/dL RDW Std Deviation (28.0-62.0) fl RDW Coeff of [place] (11.0-15.0) % Plt Count (150-400) K/uL MPV (7.40-12.00) fL Neut % (Auto) (48.0-80.0) % Lymph % (Auto) (16.0-40.0) % [place] % (Auto) (0.0-15.0) % Eos % (Auto) (0.0-7.0) % Baso % (Auto) (0.0-1.5) % Neut # (Auto) (1.4-5.7) K/uL Lymph # (Auto) (0.6-2.4) K/uL [place] # (Auto) (0.0-0.8) K/uL Eos # (Auto) (0.0-0.7) K/uL Baso # (Auto) (0.0-0.1) K/uL Nucleated RBC % /100WBC Nucleated RBCs # K/uL ABG pH 7.402 (7.35-7.45) ABG pCO2 38 (35-45) mmHG ABG pO2 87 (75-100) mmHG ABG HCO3 24 (22-26) mEq/L ABG Total CO2 20.6 ABG Base Excess -0.9 (-2.0-2.0) Sodium 143 (136-148) mmol/L Potassium 3.8 (3.5-5.1) mmol/L Chloride 105 (98-107) mmol/L Carbon Dioxide 28.3 (21.0-32.0) mmol/L BUN 8 (7.0-18.0) mg/dL Creatinine 0.9 (0.8-1.3) mg/dL Est Cr Clr Drug Dosing 92.89 mL/min Estimated GFR (MDRD) > 60.0 ml/min Glucose 244 H (74-106) mg/dL POC Glucose (60-110) mg/dL Calcium 8.6 (8.5-10.1) mg/dL Total Bilirubin 0.4 (0.2-1.0) mg/dL AST 18 (15-37) IU/L ALT 22 (14-63) IU/L Alkaline Phosphatase 54 (46-116) U/L Total Protein 7.5 (6.4-8.2) g/dL Albumin 3.8 (3.4-5.0) g/dL Globulin 3.7 (2.6-4.0) g/dL Albumin/Globulin Ratio 1.0 (0.9-1.6) Lipase 630 H (73-393) U/L Urine Color Urine Appearance Urine pH (5.0-8.0) Ur Specific [place] (1.001-1.035) Urine Protein (NEGATIVE) mg/dL Urine Glucose (UA) (NEGATIVE) mg/dL Urine Ketones (NEGATIVE) mg/dL Urine Occult Blood (NEGATIVE) Urine Nitrite (NEGATIVE) Urine Bilirubin (NEGATIVE) Urine Urobilinogen (<2.0) EU/dL Ur Leukocyte Esterase (NEGATIVE) 07/29/18 07/29/18 07/29/18 Range/Units 16:53 19:08 21:10 WBC (4.0-11.0) K/uL RBC (4.50-5.90) M/uL Hgb (13.0-17.0) g/dL Hct (38.0-50.0) % MCV (80.0-98.0) fL MCH (27.0-32.0) pg MCHC (31.0-37.0) g/dL RDW Std Deviation (28.0-62.0) fl RDW Coeff of [place] (11.0-15.0) % Plt Count (150-400) K/uL MPV (7.40-12.00) fL Neut % (Auto) (48.0-80.0) % Lymph % (Auto) (16.0-40.0) % [place] % (Auto) (0.0-15.0) % Eos % (Auto) (0.0-7.0) % Baso % (Auto) (0.0-1.5) % Neut # (Auto) (1.4-5.7) K/uL Lymph # (Auto) (0.6-2.4) K/uL [place] # (Auto) (0.0-0.8) K/uL Eos # (Auto) (0.0-0.7) K/uL Baso # (Auto) (0.0-0.1) K/uL Nucleated RBC % /100WBC Nucleated RBCs # K/uL ABG pH (7.35-7.45) ABG pCO2 (35-45) mmHG ABG pO2 (75-100) mmHG ABG HCO3 (22-26) mEq/L ABG Total CO2 ABG Base Excess (-2.0-2.0) Sodium (136-148) mmol/L Potassium (3.5-5.1) mmol/L Chloride (98-107) mmol/L Carbon Dioxide (21.0-32.0) mmol/L BUN (7.0-18.0) mg/dL Creatinine (0.8-1.3) mg/dL Est Cr Clr Drug Dosing mL/min Estimated GFR (MDRD) ml/min Glucose (74-106) mg/dL POC Glucose 202 H 73 81 (60-110) mg/dL Calcium (8.5-10.1) mg/dL Total Bilirubin (0.2-1.0) mg/dL AST (15-37) IU/L ALT (14-63) IU/L Alkaline Phosphatase (46-116) U/L Total Protein (6.4-8.2) g/dL Albumin (3.4-5.0) g/dL Globulin (2.6-4.0) g/dL Albumin/Globulin Ratio (0.9-1.6) Lipase (73-393) U/L Urine Color Urine Appearance Urine pH (5.0-8.0) Ur Specific [place] (1.001-1.035) Urine Protein (NEGATIVE) mg/dL Urine Glucose (UA) (NEGATIVE) mg/dL Urine Ketones (NEGATIVE) mg/dL Urine Occult Blood (NEGATIVE) Urine Nitrite (NEGATIVE) Urine Bilirubin (NEGATIVE) Urine Urobilinogen (<2.0) EU/dL Ur Leukocyte Esterase (NEGATIVE) Result Diagrams: 07/29/18 15:16 07/29/18 15:16 Problem List Initiated/Reviewed/Updated: Yes Orders Last 24hrs: Active Orders 24 hr Category Date Time Status Patient Status [ADT] Stat ADT 07/29/18 17:29 Active Accu Check [Blood Glucose Check, Bedside] [RC] Q6HR Care 07/29/18 19:00 Active Antiembolic Devices [RC] PER UNIT ROUTINE Care 07/29/18 23:18 Ordered Oxygen Therapy [RC] PRN Care 07/29/18 23:18 Ordered VTE/DVT Education [RC] PER UNIT ROUTINE Care 07/29/18 23:18 Ordered Vital Signs [RC] Q4H Care 07/29/18 23:18 Ordered [place] [employer] Diet [DIET] Diet 07/30/18 Breakfast Ordered NPO [Nothing Per Oral Diet] [DIET] Diet 07/29/18 Dinner Active CBC WITH AUTO DIFF [HEME] AM Lab 07/30/18 05:11 Ordered COMPREHENSIVE METABOLIC PN,CMP [CHEM] AM Lab 07/30/18 05:11 Ordered Insulin Aspart [NovoLOG] Med 07/29/18 19:00 Stop Req See Protocol SUBCUT Q6H Insulin Aspart [NovoLOG] Med 07/30/18 07:30 Ordered See Protocol SUBCUT TIDAC Insulin Glarg,Human.Rec.Analog Med 07/30/18 09:00 Ordered 20 units SQ DAILY Ondansetron [Zofran] Med 07/29/18 18:49 Active 4 mg IVPUSH Q4H PRN Pantoprazole [ProTONIX IV] Med 07/29/18 19:00 Active 40 mg IVPUSH DAILY Sodium Chloride 0.9% [Normal Saline] 1,000 ml Med 07/29/18 18:45 Active IV ASDIRECTED Sequential Compression Device [OM.PC] Per Unit Routine Oth 07/29/18 23:18 Ordered Medication Orders Sodium Chloride (Normal Saline) 1,000 mls @ 200 mls/hr IV ASDIRECTED VELIA Last Admin: 07/29/18 19:26 Dose: 200 mls/hr Insulin Aspart (Novolog) 0 unit SUBCUT Q6H VELIA; Protocol Stop: 07/30/18 07:00 Last Admin: 07/29/18 19:09 Dose: Not Given Insulin Aspart (Novolog) 0 unit SUBCUT TIDAC VELIA; Protocol Non-Formulary Medication (Insulin Glarg,Human.Rec.Analog) 20 units SQ DAILY VELIA Ondansetron HCl (Zofran) 4 mg IVPUSH Q4H PRN PRN Reason: Nausea/Vomiting Pantoprazole Sodium (Protonix Iv) 40 mg IVPUSH DAILY [facility] Last Admin: 07/29/18 19:14 Dose: 40 mg Assessment/Plan Comment:: 52 yo male admitted with gastroenteritis. We will treat with IV fluids and bowel rest.
[2018-07-30] MEDS: Sodium Chloride 0.9% 1,000 ML IV SCH ×2 (00:34→06:48)
[2018-07-30] MEDS: Insulin Aspart 100 Units/ML 3 ML Pen SUBCUT SCH ×2 (00:37→06:50)
[2018-07-30 06:48] LABS: CHLORIDE,CL 110 mmol/L (98-107); SODIUM,NA 144 mmol/L (136-148)
[2018-07-30] MEDS ORDERED: Insulin Aspart 100 Units/ML 3 ML Pen SUBCUT SCH (07:30)
[2018-07-30] MEDS ORDERED: Insulin Detemir 100 Units/ML 3 ML Pen SUBCUT SCH (09:00)
--- NOTE | 2018-07-30 10:24 | PCM.DCSUM1 ---
Discharge Summary - Hospital Course Free Text/Narrative:: Admission date: 07/29/2018 Discharge date: 07/30/2018 Admission diagnosis: #1. Gastroenteritis #2. Elevated lipase #3. Hyperglycemia #4. History of T2DM #5. Abdominal pain #6. Nausea, vomiting Discharge diagnosis: #1. Gastroenteritis #2. History of T2DM Hospital course: 52M with the above hx admitted for management of gastritis. He was placed NPO and given IV fluids. The next morning, he complained of complete resolution of nausea, pain. He tolerated oral intake well. I recommend that he follow up with his PCP and also with general surgery for an EGD/Colonoscopy. His CT of his abdomen showed increased mildly prominent lymph nodes in the mesentry which is likely secondary to his acute viral illness. He was given 1 week of protonix. - Discharge Data Discharge Date: 07/30/18 Discharge Disposition: Home, Self-Care 01 Condition: Stable - Patient Instructions Diet: Usual Diet as Tolerated Activity: As Tolerated Notify Provider of: Fever, Increased Pain, Nausea and/or Vomiting - Discharge Plan Prescriptions/Med Rec: Pantoprazole Sodium [Protonix] 40 mg PO DAILY 7 Days #7 tablet.dr Ballard Medications: Home Meds Aspirin [Ecotrin] 1 tab PO DAILY 07/29/18 [History] Insulin Degludec [Tresiba] 1 dose SQ WEEKLY 07/29/18 [History] Insulin Glarg,Human.Rec.Analog [Lantus] 20 units SQ DAILY 07/29/18 [History] Lisinopril 10 mg PO DAILY 07/29/18 [History] Pantoprazole Sodium [Protonix] 40 mg PO DAILY 7 Days #7 tablet. 07/30/18 [Rx] Forms: ED Department Discharge Referrals: Yi Siddiqui MD [Physician] - PCP,None [Primary Care Provider] - - Discharge Summary/Plan Comment DC Time >30 min.: No - Patient Data Vitals - Most Recent: Last Vital Signs Temp 36.4 C 07/30/18 08:00 Pulse 64 07/30/18 08:00 Resp 18 07/30/18 08:00 BP 146/86 H 07/30/18 08:00 Pulse Ox 98 07/30/18 08:00 Weight - Most Recent: 76.385 kg I&O - Last 24 hours: Intake & Output 07/29/18 07/30/18 07/30/18 22:59 06:59 14:59 Intake Total 2405 Output Total 0 Balance 2405 Lab Results - Last 24 hrs: Laboratory Results - last 24 hr 07/29/18 07/29/18 07/29/18 Range/Units 15:00 15:14 15:16 WBC 4.51 (4.0-11.0) K/uL RBC 5.01 (4.50-5.90) M/uL Hgb 15.0 (13.0-17.0) g/dL Hct 44.4 (38.0-50.0) % MCV 88.6 (80.0-98.0) fL MCH 29.9 (27.0-32.0) pg MCHC 33.8 (31.0-37.0) g/dL RDW Std Deviation 40.8 (28.0-62.0) fl RDW Coeff of [place] 13 (11.0-15.0) % Plt Count 207 (150-400) K/uL MPV 9.70 (7.40-12.00) fL Neut % (Auto) 38.8 L (48.0-80.0) % Lymph % (Auto) 51.2 H (16.0-40.0) % [place] % (Auto) 7.5 (0.0-15.0) % Eos % (Auto) 1.6 (0.0-7.0) % Baso % (Auto) 0.9 (0.0-1.5) % Neut # (Auto) 1.8 (1.4-5.7) K/uL Lymph # (Auto) 2.3 (0.6-2.4) K/uL [place] # (Auto) 0.3 (0.0-0.8) K/uL Eos # (Auto) 0.1 (0.0-0.7) K/uL Baso # (Auto) 0.0 (0.0-0.1) K/uL Nucleated RBC % 0.0 /100WBC Nucleated RBCs # 0 K/uL ABG pH (7.35-7.45) ABG pCO2 (35-45) mmHG ABG pO2 (75-100) mmHG ABG HCO3 (22-26) mEq/L ABG Total CO2 ABG Base Excess (-2.0-2.0) Sodium (136-148) mmol/L Potassium (3.5-5.1) mmol/L Chloride (98-107) mmol/L Carbon Dioxide (21.0-32.0) mmol/L BUN (7.0-18.0) mg/dL Creatinine (0.8-1.3) mg/dL Est Cr Clr Drug Dosing mL/min Estimated GFR (MDRD) ml/min Glucose (74-106) mg/dL POC Glucose 241 H (60-110) mg/dL Calcium (8.5-10.1) mg/dL Total Bilirubin (0.2-1.0) mg/dL AST (15-37) IU/L ALT (14-63) IU/L Alkaline Phosphatase (46-116) U/L Total Protein (6.4-8.2) g/dL Albumin (3.4-5.0) g/dL Globulin (2.6-4.0) g/dL Albumin/Globulin Ratio (0.9-1.6) Lipase (73-393) U/L Urine Color YELLOW Urine Appearance CLEAR Urine pH 5.5 (5.0-8.0) Ur Specific [place] <= 1.005 (1.001-1.035) Urine Protein NEGATIVE (NEGATIVE) mg/dL Urine Glucose (UA) >=1000 (NEGATIVE) mg/dL Urine Ketones NEGATIVE (NEGATIVE) mg/dL Urine Occult Blood NEGATIVE (NEGATIVE) Urine Nitrite NEGATIVE (NEGATIVE) Urine Bilirubin NEGATIVE (NEGATIVE) Urine Urobilinogen 0.2 (<2.0) EU/dL Ur Leukocyte Esterase NEGATIVE (NEGATIVE) 07/29/18 07/29/18 07/29/18 Range/Units 15:16 15:16 15:20 WBC (4.0-11.0) K/uL RBC (4.50-5.90) M/uL Hgb (13.0-17.0) g/dL Hct (38.0-50.0) % MCV (80.0-98.0) fL MCH (27.0-32.0) pg MCHC (31.0-37.0) g/dL RDW Std Deviation (28.0-62.0) fl RDW Coeff of [place] (11.0-15.0) % Plt Count (150-400) K/uL MPV (7.40-12.00) fL Neut % (Auto) (48.0-80.0) % Lymph % (Auto) (16.0-40.0) % [place] % (Auto) (0.0-15.0) % Eos % (Auto) (0.0-7.0) % Baso % (Auto) (0.0-1.5) % Neut # (Auto) (1.4-5.7) K/uL Lymph # (Auto) (0.6-2.4) K/uL [place] # (Auto) (0.0-0.8) K/uL Eos # (Auto) (0.0-0.7) K/uL Baso # (Auto) (0.0-0.1) K/uL Nucleated RBC % /100WBC Nucleated RBCs # K/uL ABG pH 7.402 (7.35-7.45) ABG pCO2 38 (35-45) mmHG ABG pO2 87 (75-100) mmHG ABG HCO3 24 (22-26) mEq/L ABG Total CO2 20.6 ABG Base Excess -0.9 (-2.0-2.0) Sodium 143 (136-148) mmol/L Potassium 3.8 (3.5-5.1) mmol/L Chloride 105 (98-107) mmol/L Carbon Dioxide 28.3 (21.0-32.0) mmol/L BUN 8 (7.0-18.0) mg/dL Creatinine 0.9 (0.8-1.3) mg/dL Est Cr Clr Drug Dosing 92.89 mL/min Estimated GFR (MDRD) > 60.0 ml/min Glucose 244 H (74-106) mg/dL POC Glucose (60-110) mg/dL Calcium 8.6 (8.5-10.1) mg/dL Total Bilirubin 0.4 (0.2-1.0) mg/dL AST 18 (15-37) IU/L ALT 22 (14-63) IU/L Alkaline Phosphatase 54 (46-116) U/L Total Protein 7.5 (6.4-8.2) g/dL Albumin 3.8 (3.4-5.0) g/dL Globulin 3.7 (2.6-4.0) g/dL Albumin/Globulin Ratio 1.0 (0.9-1.6) Lipase 630 H (73-393) U/L Urine Color Urine Appearance Urine pH (5.0-8.0) Ur Specific [place] (1.001-1.035) Urine Protein (NEGATIVE) mg/dL Urine Glucose (UA) (NEGATIVE) mg/dL Urine Ketones (NEGATIVE) mg/dL Urine Occult Blood (NEGATIVE) Urine Nitrite (NEGATIVE) Urine Bilirubin (NEGATIVE) Urine Urobilinogen (<2.0) EU/dL Ur Leukocyte Esterase (NEGATIVE) 07/29/18 07/29/18 07/29/18 Range/Units 16:53 19:08 21:10 WBC (4.0-11.0) K/uL RBC (4.50-5.90) M/uL Hgb (13.0-17.0) g/dL Hct (38.0-50.0) % MCV (80.0-98.0) fL MCH (27.0-32.0) pg MCHC (31.0-37.0) g/dL RDW Std Deviation (28.0-62.0) fl RDW Coeff of [place] (11.0-15.0) % Plt Count (150-400) K/uL MPV (7.40-12.00) fL Neut % (Auto) (48.0-80.0) % Lymph % (Auto) (16.0-40.0) % [place] % (Auto) (0.0-15.0) % Eos % (Auto) (0.0-7.0) % Baso % (Auto) (0.0-1.5) % Neut # (Auto) (1.4-5.7) K/uL Lymph # (Auto) (0.6-2.4) K/uL [place] # (Auto) (0.0-0.8) K/uL Eos # (Auto) (0.0-0.7) K/uL Baso # (Auto) (0.0-0.1) K/uL Nucleated RBC % /100WBC Nucleated RBCs # K/uL ABG pH (7.35-7.45) ABG pCO2 (35-45) mmHG ABG pO2 (75-100) mmHG ABG HCO3 (22-26) mEq/L ABG Total CO2 ABG Base Excess (-2.0-2.0) Sodium (136-148) mmol/L Potassium (3.5-5.1) mmol/L Chloride (98-107) mmol/L Carbon Dioxide (21.0-32.0) mmol/L BUN (7.0-18.0) mg/dL Creatinine (0.8-1.3) mg/dL Est Cr Clr Drug Dosing mL/min Estimated GFR (MDRD) ml/min Glucose (74-106) mg/dL POC Glucose 202 H 73 81 (60-110) mg/dL Calcium (8.5-10.1) mg/dL Total Bilirubin (0.2-1.0) mg/dL AST (15-37) IU/L ALT (14-63) IU/L Alkaline Phosphatase (46-116) U/L Total Protein (6.4-8.2) g/dL Albumin (3.4-5.0) g/dL Globulin (2.6-4.0) g/dL Albumin/Globulin Ratio (0.9-1.6) Lipase (73-393) U/L Urine Color Urine Appearance Urine pH (5.0-8.0) Ur Specific [place] (1.001-1.035) Urine Protein (NEGATIVE) mg/dL Urine Glucose (UA) (NEGATIVE) mg/dL Urine Ketones (NEGATIVE) mg/dL Urine Occult Blood (NEGATIVE) Urine Nitrite (NEGATIVE) Urine Bilirubin (NEGATIVE) Urine Urobilinogen (<2.0) EU/dL Ur Leukocyte Esterase (NEGATIVE) 07/30/18 07/30/18 07/30/18 Range/Units 06:06 06:06 06:28 WBC 4.42 (4.0-11.0) K/uL RBC 4.58 (4.50-5.90) M/uL Hgb 13.8 (13.0-17.0) g/dL Hct 40.6 (38.0-50.0) % MCV 88.6 (80.0-98.0) fL MCH 30.1 (27.0-32.0) pg MCHC 34.0 (31.0-37.0) g/dL RDW Std Deviation 41.6 (28.0-62.0) fl RDW Coeff of [place] 13 (11.0-15.0) % Plt Count 199 (150-400) K/uL MPV 9.80 (7.40-12.00) fL Neut % (Auto) 38.9 L (48.0-80.0) % Lymph % (Auto) 48.4 H (16.0-40.0) % [place] % (Auto) 10.0 (0.0-15.0) % Eos % (Auto) 1.8 (0.0-7.0) % Baso % (Auto) 0.9 (0.0-1.5) % Neut # (Auto) 1.7 (1.4-5.7) K/uL Lymph # (Auto) 2.1 (0.6-2.4) K/uL [place] # (Auto) 0.4 (0.0-0.8) K/uL Eos # (Auto) 0.1 (0.0-0.7) K/uL Baso # (Auto) 0.0 (0.0-0.1) K/uL Nucleated RBC % 0.0 /100WBC Nucleated RBCs # 0 K/uL ABG pH (7.35-7.45) ABG pCO2 (35-45) mmHG ABG pO2 (75-100) mmHG ABG HCO3 (22-26) mEq/L ABG Total CO2 ABG Base Excess (-2.0-2.0) Sodium 144 (136-148) mmol/L Potassium 3.9 (3.5-5.1) mmol/L Chloride 110 H (98-107) mmol/L Carbon Dioxide 25.0 (21.0-32.0) mmol/L BUN 8 (7.0-18.0) mg/dL Creatinine 0.8 (0.8-1.3) mg/dL Est Cr Clr Drug Dosing 104.50 mL/min Estimated GFR (MDRD) > 60.0 ml/min Glucose 86 (74-106) mg/dL POC Glucose 80 (60-110) mg/dL Calcium 8.2 L (8.5-10.1) mg/dL Total Bilirubin 0.6 (0.2-1.0) mg/dL AST 18 (15-37) IU/L ALT 17 (14-63) IU/L Alkaline Phosphatase 40 L (46-116) U/L Total Protein 6.2 L (6.4-8.2) g/dL Albumin 3.1 L (3.4-5.0) g/dL Globulin 3.1 (2.6-4.0) g/dL Albumin/Globulin Ratio 1.0 (0.9-1.6) Lipase (73-393) U/L Urine Color Urine Appearance Urine pH (5.0-8.0) Ur Specific [place] (1.001-1.035) Urine Protein (NEGATIVE) mg/dL Urine Glucose (UA) (NEGATIVE) mg/dL Urine Ketones (NEGATIVE) mg/dL Urine Occult Blood (NEGATIVE) Urine Nitrite (NEGATIVE) Urine Bilirubin (NEGATIVE) Urine Urobilinogen (<2.0) EU/dL Ur Leukocyte Esterase (NEGATIVE) Med Orders - Current: Current Medications Sodium Chloride (Normal Saline) 1,000 mls @ 200 mls/hr IV ASDIRECTED [facility] Last Admin: 07/30/18 06:48 Dose: 200 mls/hr Insulin Aspart (Novolog) 0 unit SUBCUT TIDAC [facility]; Protocol Last Admin: 07/30/18 06:50 Dose: Not Given Insulin Detemir (Levemir) 20 unit SUBCUT DAILY [facility] Ondansetron HCl (Zofran) 4 mg IVPUSH Q4H PRN PRN Reason: Nausea/Vomiting Pantoprazole Sodium (Protonix Iv) 40 mg IVPUSH DAILY [facility] Last Admin: 07/29/18 19:14 Dose: 40 mg Discontinued Medications Sodium Chloride (Normal Saline) 1,000 mls @ 999 mls/hr IV STAT ONE Stop: 07/29/18 15:57 Last Admin: 07/29/18 15:20 Dose: 999 mls/hr Sodium Chloride (Normal Saline) 1,000 mls @ 999 mls/hr IV STAT ONE Stop: 07/29/18 18:29 Last Admin: 07/29/18 17:53 Dose: 999 mls/hr Pantoprazole Sodium 40 mg/ (Sodium Chloride) 100 mls @ 10 mls/hr IVPUSH DAILY [facility] Insulin Aspart (Novolog) 0 unit SUBCUT Q6H [facility]; Protocol Stop: 07/30/18 07:00 Last Admin: 07/30/18 06:50 Dose: Not Given Insulin Human Regular (Novolin R) 5 unit SUBCUT ONETIME ONE; Protocol Stop: 07/29/18 15:26 Last Admin: 07/29/18 15:31 Dose: 5 unit Iopamidol (Isovue Multipack-370 (76%)) 100 ml IVPUSH ONETIME ONE Stop: 07/29/18 16:55 Last Admin: 07/29/18 16:54 Dose: 100 ml Ondansetron HCl (Zofran) 4 mg IVPUSH ONETIME ONE Stop: 07/29/18 14:58 Last Admin: 07/29/18 15:22 Dose: 4 mg
== END 2018-07-30 11:05 | disposition home or self-care (01) ==
LOC: MW.ED 14:43 → MW.MS 18:31
PROVIDERS: ADMIT Internal Medicine; ATTEND Internal Medicine
DX: K52.9 Noninfective gastroenteritis and colitis, unspecified (principal); E11.65 Type 2 diabetes mellitus with hyperglycemia; R74.8 Abnormal levels of other serum enzymes; I10 Essential (primary) hypertension; F17.210 Nicotine dependence, cigarettes, uncomplicated; Z79.4 Long term (current) use of insulin; Z79.899 Other long term (current) drug therapy; Z79.82 Long term (current) use of aspirin
CPT/HCPCS: 36415; 36600; 74177; 80053; 81003; 82803; 82962; 83690; 85025; 96361; 96374; 99284; C9113; J2405; J7040; Q9967; 96375; G0378; J1815-GY